=== PATIENT | female | born 1960 | race Caucasian/White ===

== ENCOUNTER 2020-06-06 18:08 | Emergency (ER) | payer OTHER, SELFPAY ==
[2020-06-06 18:22] VITALS: BP 132/78; PULSE 70; RESP 16; TEMP 36.8; O2SAT 98
--- NOTE | 2020-06-06 18:30 | ED.GENADULT ---
HPI - General Adult General Chief complaint: Ear Stated complaint: Build up wax Time Seen by Provider: 06/06/20 18:30 Source: patient Mode of arrival: ambulatory Limitations: no limitations History of Present Illness HPI narrative: 59-year-old female patient presents to the [facility] with complaints of decreased hearing to the right ear. Patient states she thinks she has some wax buildup. Patient states she has had some decreased hearing that is gotten progressively worse over the past 2 months. Patient states she has tried peroxide, Debrox drops and an cxzx-bno-ycnloow wax removal without any relief. Patient denies any fevers or pain. Denies any runny nose, coughing or sore throat. Related Data Allergies Allergy/AdvReac Type Severity Reaction Status Date / Time NKDA Allergy Unknown Uncoded 09/05/10 15:47 Review of Systems Review of Systems: Narrative: CONSTITUTIONAL: Denies fever, chills, or sweats. EYES: Denies visual changes, redness, or discharge. ENT: Denies rhinorrhea, congestion, sore throat, or otalgia. Positive decreased hearing to right ear CARDIOVASCULAR: Denies chest pain, palpitations, or edema. RESPIRATORY: Denies cough or dyspnea. GASTROINTESTINAL: Denies abdominal pain, nausea, vomiting, or diarrhea. GENITOURINARY: Denies dysuria or hematuria. SKIN: Denies rash or itching. MUSCULOSKELETAL: Denies back pain, joint pain, or myalgia. NEUROLOGIC: Denies headache, numbness, or weakness. PSYCHIATRIC: Denies anxiety or depression. PMFSH Social History Social History Smoking status: Never smoker Alcohol intake: current Comments At the time of my signature I agree with nursing past medical history, surgical, social, and family history. There is no relevant family history pertinent to the presenting complaint. Exam Narrative: Exam Narrative: GENERAL: Well-appearing, well-nourished, and in no acute distress. HEAD: Normocephalic, atraumatic. EYES: PERRLA and EOMI. ENT: Nares clear, no rhinorrhea or epistaxis. Mucous membranes moist. Patient has impacted cerumen to the right ear of the canal. Unable to visualize the TM. NECK: Supple. No lymphadenopathy CHEST: Clear to auscultation. No respiratory distress. HEART: Regular rate and rhythm. No murmur heard. Normal peripheral pulses. ABDOMEN: Soft, nontender, nondistended, normal active bowel sounds. EXTREMITIES: Normal range of motion. No edema. SKIN: Warm, dry, no rash. NEURO: No focal deficits. Alert and oriented x3. Course Vital Signs Vital signs: Vital Signs Temperature 36.8 C 06/06/20 18:22 Pulse Rate 70 06/06/20 18:22 Respiratory Rate 16 06/06/20 18:22 Blood Pressure 132/78 06/06/20 18:22 Pulse Oximetry 98 06/06/20 18:22 Temperature 36.8 C 06/06/20 18:22 Pulse Rate 70 06/06/20 18:22 Respiratory Rate 16 06/06/20 18:22 Blood Pressure 132/78 06/06/20 18:22 Pulse Oximetry 98 06/06/20 18:22 Vital signs reviewed. The patient has been informed that they may have pre-hypertension or Hypertension based on a BP reading in the department. I recommend that the patient call the primary care provider listed on their discharge instructions or a physician of their choice this week to arrange follow up for further evaluation of possible pre-hypertension or Hypertension Procedures Ear Wax Removal Right Ear: Ear Wax Removal Date: 06/06/20 Ear Wax Removal Time: 18:34 Cerumenolytic Used: 5-10% Sodium Bicarb solution Results: Re-examined: cerumen removed completely TM Examination: TM(s) intact, normal appearance Ear Canal Exam: atraumatic Patient Tolerated Procedure: well Complications: no problems Technique: ear canal irrigated and ear canal curetted Additional Comments: The patient had cerumen removed from the R ear canal with warm water and peroxide irrigation and a loop in order to visualize the TM. The TM has no
== END 2020-06-06 18:49 | disposition home or self-care (01) ==
PROVIDERS: Emergency Provider Nurse Practitioner Family; PCP Family Medicine
DX: H61.21 Impacted cerumen, right ear (principal); H66.91 Otitis media, unspecified, right ear
CPT/HCPCS: 69210; 99213; A9270; G0463

== ENCOUNTER 2021-01-17 09:46 | Outpatient (CLI) | payer OTHER, SELFPAY | END 2021-01-17 09:47 | disposition home or self-care (01) | LOC: ANHCOVIDVC 09:46 | PROVIDERS: PCP Family Medicine | DX: Z23 Encounter for immunization (principal) | CPT/HCPCS: 0001A; 91300 ==

== ENCOUNTER 2021-02-07 09:48 | Outpatient (CLI) | payer OTHER, SELFPAY | END 2021-02-07 09:49 | disposition home or self-care (01) | LOC: ANHCOVIDVC 09:48 | PROVIDERS: PCP Family Medicine | DX: Z23 Encounter for immunization (principal) | CPT/HCPCS: 0002A; 91300 ==

== ENCOUNTER 2021-11-15 08:36 | Outpatient (CLI) | payer OTHER, SELFPAY ==
--- NOTE | ~2021-11-15 | MM_ITS ---
EXAMINATION: MM screening bebe BI w carrie HISTORY: Screening mammogram TECHNIQUE: Craniocaudal and mediolateral oblique 3-D tomosynthesis images were obtained and synthetic 2-D images were generated. CAD analysis was submitted and interpreted. COMPARISON: 10/18/2019, 10/08/2018, 10/07/2017, 10/01/2016, 09/26/2015 bilateral screening mammogram e xaminations BREAST PARENCHYMAL COMPOSITION: There are scattered areas of fibroglandular density. FINDINGS: Stable mild fibroglandular asymmetry. There is no evidence of suspicious mass, calcificatio n, or architectural distortion to suggest malignancy in either breast. There has been no suspicious i nterval change. IMPRESSION: 1. No mammographic evidence of malignancy. 2. Recommend routine screening mammography in one year. BI-RADS Category 1: Negative Reviewed, dictated and finalized at location A. 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
--- NOTE | ~2021-11-15 | DEXA_ITS ---
Bone Density Report Name: GIA SHARPE Age: 61 Sex: Female Ethnicity: White Date of : 1960 Indication: osteopenia; postmenopausal Referring Provider: Baljinder, Paulette Mobley Study: Bone densitometry was performed. Exam Date: November 15, 2021 Accession number: [id number] Bone Density: Region BMD T-score Z-score Classification AP Spine (L1, L2) 0.816 -1.5 -0.1 Osteopenia Femoral Neck (Left) 0.646 -1.8 -0.5 Osteopenia Total Hip (Left) 0.812 -1.1 0.0 Osteopenia Total Hip Bilateral Avg 0.807 -1.2 -0.1 Osteopenia Femoral Neck (Right) 0.653 -1.8 -0.4 Osteopenia Total Hip (Right) 0.802 -1.2 -0.1 Osteopenia World Health Organization criteria for BMD impression classify patients as: Normal (T-score at or above -1.0), Osteopenia (T-score between -1.0 and -2.5), or Osteoporosis (T-score at or below -2.5). 10-year Fracture Risk(1): Major Osteoporotic Fracture 9.3% Hip Fracture 1.1% Reported Risk Factors: [place] (), Neck BMD=0.646, BMI=24.6 (1) FRAX(R) Version 3.08. Fracture probability calculated for an untreated patient. Fracture probability may be lower if the patient has received treatment. Previous Exams: Region Exam Age BMD T-score BMD Change BMD Change Date g/cm2 vs Baseline vs Previous AP Spine(L1, L2) 11/15/2021 61 0.816 -1.5 -0.162(-16.5%) 0.000(0.0%) 10/18/2019 59 0.816 -1.5 -0.162(-16.6%) -0.034(-4.0%)* 10/01/2016 56 0.850 -1.2 -0.128(-13.1%) -0.019(-2.2%) 09/21/2014 54 0.869 -1.0 -0.109(-11.1%) -0.004(-0.4%)# 08/31/2012 52 0.873 -1.0 -0.105(-10.8%) -0.105(-10.8%) 07/31/2010 50 0.978 0.0 Total Hip(Left) 11/15/2021 61 0.812 -1.1 -0.035(-4.1%)# 0.017(2.1%) 10/18/2019 59 0.795 -1.2 -0.052(-6.1%)# -0.027(-3.3%) 10/01/2016 56 0.822 -1.0 -0.025(-3.0%)# -0.011(-1.3%) 09/21/2014 54 0.833 -0.9 -0.014(-1.6%)# -0.015(-1.8%)# 08/31/2012 52 0.848 -0.8 0.002(0.2%)# 0.002(0.2%)# 07/31/2010 50 0.847 -0.8 Total Hip(Right) 11/15/2021 61 0.802 -1.2 -0.079(-8.9%)# 0.000(0.1%) 10/18/2019 59 0.801 -1.2 -0.079(-9.0%)# -0.060(-6.9%)* 10/01/2016 56 0.861 -0.7 -0.019(-2.2%)# 0.013(1.6%) 09/21/2014 54 0.848 -0.8 -0.033(-3.7%)# 0.007(0.9%)# 08/31/2012 52 0.840 -0.8 -0.040(-4.5%)# -0.040(-4.5%)# 07/31/2010 50 0.880 -0.5 *Denotes significance at 95% confidence level, LSC for AP Spine = 0.022 g/cm2, LSC for Total Hip = 0.027 g/cm2 Clinical Information Provided by Patient: Andrew
== END 2021-11-15 08:37 | disposition home or self-care (01) ==
LOC: ANHIMG 08:40
PROVIDERS: PCP Family Medicine; Visit Provider Nurse Practitioner Obstetrics & Gynecology
DX: Z12.31 Encounter for screening mammogram for malignant neoplasm of breast (principal); Z78.0 Asymptomatic menopausal state; M85.89 Other specified disorders of bone density and structure, multiple sites
CPT/HCPCS: 77063; 77067; 77080

== ENCOUNTER 2022-02-14 08:12 | Emergency (ER) | payer OTHER, SELFPAY ==
[2022-02-14 08:20] VITALS: BP 108/56; PULSE 70; RESP 16; TEMP 36.2; O2SAT 100
[2022-02-14 08:22] VITALS: BP 108/56; PULSE 70; RESP 16; TEMP 36.2; O2SAT 100
--- NOTE | 2022-02-14 08:22 | ED.EYEPROB ---
HPI - Eye Problem General Chief complaint: Eye Problems Stated complaint: Eye Pain Time Seen by Provider: 02/14/22 08:30 Source: patient Mode of arrival: ambulatory Limitations: no limitations History of Present Illness HPI Narrative: 61-year-old female presented for complaint of foreign body sensation to the left eye after dust and debris fell into the eye yesterday. She states she was wearing contacts at the time, but has started wearing her glasses. Since then she continues to feel like dust is still in the eye. It feels like it moves around. Denies redness, discharge, itching, or significant pain or vision changes. She has used 2 different leftover eyedrops for pinkeye. Related Data Allergies Allergy/AdvReac Type Severity Reaction Status Date / Time NKDA Allergy Unknown Other Uncoded 02/14/22 08:48 Review of Systems Review of Systems: CONSTITUTIONAL: Denies body aches, fever, chills EYES:Endorses FB sensation, Denies visual changes photophobia ENT: Denies rhinorrhea, congestion, sore throat, or otalgia. CARDIOVASCULAR: Denies chest pain, palpitations RESPIRATORY: Denies cough or dyspnea. GASTROINTESTINAL: Denies abdominal pain, nausea, vomiting, or diarrhea. SKIN: Denies rash, itching, or wounds. MUSCULOSKELETAL: Denies back pain, joint pain, or myalgia. NEUROLOGIC: Denies headache, numbness, tingling, or weakness. PSYCH: Denies depression or anxiety. All systems reviewed & are unremarkable except as noted in HPI and below PMFSH Social History Social History Smoking status: Never smoker Alcohol intake: current Comments At time of signature, I have reviewed and agree with nursing past medical, surgical, social and family history unless otherwise noted. Please see nursing chart for further information. There is no relevant family history pertinent to the presenting complaint Exam Narrative: GENERAL: Well-appearing HEAD: Normocephalic, atraumatic. EYES: No conjunctival injection, eye lid swelling/redness . EOMI. Lid eversion showed no evidence of trauma; left lateral corner of eye FB removed c/w dried eye discharge. fluorescein stain showed approx 3mm corneal abrasion at 6 o'clock to pupil ENT: Mucous membranes pink and moist. No rhinorrhea. TMs normal bilaterally. Throat normal. Uvula midline. NECK: Normal AROM. Supple. No lymphadenopathy. CHEST: No respiratory distress. Clear to auscultation. HEART: Regular rate and rhythm. No murmur appreciated. Normal peripheral pulses. ABDOMEN: Soft, nontender, nondistended MUSCULOSKELETAL: No bony tenderness. EXTREMITIES: Normal range of motion. SKIN: Warm, dry, no rash. Normal skin turgor. NEURO: No focal deficits. Alert and oriented x3. Steady gait PSYCH: Normal affect. Course Course Emergency Course: Patient is aware of diagnosis, understands and agrees to treatment plan. Anticipatory guidance given. Patient agrees to follow-up as directed and is aware of reasons to seek care at the emergency department. Portions of this record may have been created with voice recognition software Level of Care: Express Care Visit Vital Signs Vital signs: Vital Signs Temperature 97.2 F L 02/14/22 08:20 Pulse Rate 70 02/14/22 08:20 Respiratory Rate 16 02/14/22 08:20 Blood Pressure 108/56 L 02/14/22 08:20 Pulse Oximetry 100 02/14/22 08:20 Temperature 97.2 F L 02/14/22 08:22 Pulse Rate 70 02/14/22 08:22 Respiratory Rate 16 02/14/22 08:22 Blood Pressure 108/56 L 02/14/22 08:22 Pulse Oximetry 100 02/14/22 08:22 Procedures FB Removal Eye Foreign Body #1: Foreign Body Removal Date: 02/14/22 Location: eye (L) Topical anesthetic used: tetracaine Foreign body: other Evidence of corneal penetration: Yes Technique: eye wash bottle Patient tolerated procedure: well Foreign Body Removal Narrative: approx 3mm corneal abrasion to 6
== END 2022-02-14 09:07 | disposition home or self-care (01) ==
PROVIDERS: Emergency Provider Nurse Practitioner Family; PCP Family Medicine
DX: S05.02XA Injury of conjunctiva and corneal abrasion without foreign body, left eye, initial encounter (principal); X58.XXXA Exposure to other specified factors, initial encounter; T15.92XA Foreign body on external eye, part unspecified, left eye, initial encounter
CPT/HCPCS: 99213; A9270; G0463

== ENCOUNTER 2022-03-28 00:22 | Day surgery (SDC) | payer OTHER, SELFPAY ==
[2022-03-19 12:25] VITALS: BMI 23.4
[2022-03-28 07:33] VITALS: BP 108/54; PULSE 87; RESP 19; TEMP 36.6; O2SAT 100
[2022-03-28] MEDS: LACTATED RINGERS 1,000 ML 150 ML IV CONT (07:41)
--- NOTE | 2022-03-28 08:03 | WPDANESEPPF ---
Anes - Initial Pre Proc Eval Procedure: Operation Date: 03/28/22 08:45 Proposed Procedures p Screening Colonoscopy - Yoni Ocampo MD Date/Time: 03/28/22 08:03 Surgeon: Yoni Ocampo MD Pre Op Diagnosis: family hx of colon ca, hx of colon polyps Patient Data Age: 61 Gender: F Height: 1.7 m Weight: 87 kg Last Vital Signs Temp 36.6 C 03/28/22 07:33 Pulse 87 03/28/22 07:33 Resp 19 03/28/22 07:33 BP 108/54 L 03/28/22 07:33 Pulse Ox 100 03/28/22 07:33 Allergies Allergy/AdvReac Type Severity Reaction Status Date / Time NKDA Allergy Unknown Other Uncoded 03/28/22 07:30 Home Medications Medication Instructions Recorded Confirmed Type calcium carbonate-vitamin D3 200 tablet PO DAILY 03/19/22 03/28/22 History hq-wa-LW-vit C-[id number]-[id number]-coQ10 200 cap PO DAILY 03/19/22 03/28/22 History [Daily Multivitamin] Patient hx anesthesia problems: none Family hx anesthesia problems: none Results Review: All pre-operative results and documents have been reviewed as part of the pre-operative evaluation. COUNTS INCLUDE 234 BEDS AT THE [facility] Social History Social History Smoking status: Former smoker Tobacco type: cigarettes Alcohol intake: current Alcohol use details: one a week Substance use: never Substance use type: does not use Living arrangements: alone Spiritual care concerns: No Anes - Eval Final PreProcedure Day of Procedure 03/28/22 08:03 Patient weight: overweight Heart: regular rate and rhythm Lungs: clear to auscultation and normal air movement Airway: Mallampati scale class II Neurological: alert and oriented Last oral intake: >/= 8 hours ASA classification: II Emergent: no Anesthetic plan: proceed Anesthesia type and monitoring: general GIVS Results Review: All pre-operative results and documents have been reviewed as part of the pre-operative evaluation. Informed Consent: The patient's anesthetic plan and its attendant risks and benefits were discussed with the patient/family/POA. Questions were solicited and answers provided to the satisfaction of the patient/family/POA.
--- NOTE | 2022-03-28 08:35 | WPDGICN ---
Assessment and Plan Assessment and plan (1) History of colon polyps: Code(s): Z86.010 - Personal history of colonic polyps Status: Acute Assessment and Plan: Patient has a history of adenomatous colon polyps removed from the colon 2016. Plan is for surveillance colonoscopy now and at intervals in the future. (2) Family history of colonic polyps: Code(s): Z83.71 - Family history of colonic polyps Status: Acute Assessment and Plan: Patient's father has had colon cancer. For this reason surveillance colonoscopy is advised now on at 5 year intervals in the future. GI Consult Note Consult date/time: 03/28/22 08:35 HPI: Regina Conway is a 61 year old female Presents for screening colonoscopy. Patient's family history is significant that her father had colon cancer. Patient herself has had colon polyps on previous colonoscopy 2015. Patient reports that her current weight appetite and bowel movements are normal. She denies abdominal pain. She has had no bleeding. She presents today for surveillance colonoscopy. Review of Systems Review of Systems: All systems reviewed & are unremarkable except as noted in HPI and below PMFSH Social History Social History Smoking status: Former smoker Tobacco type: cigarettes Alcohol intake: current Alcohol use details: one a week Substance use: never Substance use type: does not use Living arrangements: alone Spiritual care concerns: No Meds Home Medications and Allergies Home Medications Medication Instructions Recorded Confirmed Type calcium carbonate-vitamin D3 200 tablet PO DAILY 03/19/22 03/28/22 History mz-tz-ZK-vit S-gbhwi-tgc-coQ10 200 cap PO DAILY 03/19/22 03/28/22 History [Daily Multivitamin] Allergies Allergy/AdvReac Type Severity Reaction Status Date / Time NKDA Allergy Unknown Other Uncoded 03/28/22 07:30 Vital Signs Vital Signs - 24 hr 03/28/22 07:33 Temperature 97.9 F Pulse Rate 87 Respiratory Rate 19 Blood Pressure 108/54 L Pulse Oximetry 100 Exam Narrative: Physical exam reveals patient to be alert. Vital signs stable. HEENT exam is unremarkable. Patient is anicteric. Lungs are clear to auscultation and percussion. Heart is without murmur or extra sounds. Abdominal exam bowel sounds are present soft nontender with no organomegaly. Digital external rectal exam is normal.
[2022-03-28] MEDS: SIMETHICONE ORAL SUSPENSION 20 MG/0.3 ML 30 ML BOTTLE 0.6 ML IRRIGATION (08:57)
[2022-03-28 09:05] VITALS: BP 88/48; PULSE 72; RESP 15; O2SAT 99
[2022-03-28 09:15] VITALS: BP 100/63; PULSE 81; RESP 20; O2SAT 99
[2022-03-28 09:25] VITALS: BP 108/57; PULSE 74; RESP 20; O2SAT 100
== END 2022-03-28 09:35 | disposition home or self-care (01) ==
PROVIDERS: PCP Family Medicine; Visit Provider Internal Medicine Gastroenterology
PROC: 0DJD8ZZ Inspection of Lower Intestinal Tract, Via Natural or Artificial Opening Endoscopic (ICD-10-PCS; CPT 45378; principal; 2022-03-28 08:45)
DX: Z12.11 Encounter for screening for malignant neoplasm of colon (principal); K64.8 Other hemorrhoids; Z87.891 Personal history of nicotine dependence
CPT/HCPCS: 45378; J2704; J7120

== ENCOUNTER 2022-06-19 13:09 | Emergency (ER) | payer OTHER, SELFPAY ==
--- NOTE | ~2022-06-19 | XR_ITS ---
XR foot LT 2V 06/19/2022 14:12 Indication: Foreign body Procedure: 4 views left foot Comparison: 06/19/2022 Findings: Linear foreign body position unchanged from prior examination allowing for differences of t echnique. There is soft tissue swelling. Hemostat device is identified overlying the plantar soft tis sues. No underlying fracture or traumatic malalignment. Impression: 1: Stable position to linear radiopaque foreign body in the plantar soft tissues. Reviewed, dictated and finalized at location A. Impression: 1: Stable position to linear radiopaque foreign body in the plantar soft tissue s.
--- NOTE | ~2022-06-19 | XR_ITS ---
XR foot LT min 3V 06/19/2022 13:23 Indication: Foreign body removal Procedure: 4 views left foot Comparison: No prior studies for comparison. Findings: There is a linear radiopaque foreign body in the plantar soft tissues tissues overlying the third metatarsal neck. Mild soft tissue swelling. No fracture or traumatic malalignment. Lisfranc kaleb int intact Impression: 1: Linear radiopaque foreign body of the plantar soft tissues overlying the third metatarsal neck. Reviewed, dictated and finalized at location A. Impression: 1: Linear radiopaque foreign body of the plantar soft tissues overlying the thi rd metatarsal neck.
--- NOTE | 2022-06-19 13:14 | ED.GENADULT ---
HPI - General Adult General Chief complaint: Wound/Laceration Stated complaint: FB L FOOT Time Seen by Provider: 06/19/22 13:17 Source: patient, RN notes reviewed and old records reviewed Mode of arrival: ambulatory Limitations: no limitations History of Present Illness HPI narrative: 61 year old female presents to [facility] care with complaints of foreign body in her left foot for since the . Patient states that she was hemming a dress and a sewing needle went into the carpet and she stepped on it and it went into her foot. She states she pulled onto the needle and it had broken off into her foot.Tetanus is up to date from 09/2018.Patient states that she tried to get needle out but was unsuccessful. Patient states that she has been wearing her tennis shoes and she has been able to walk on her foot. MD complaint: Needle in foot Onset (ago): day(s) (6) Location: left and lower extremity (ball of foot) Related Data Home Medications Medication Instructions Recorded Confirmed calcium carbonate 200 mg calcium 200 tablet PO DAILY 03/19/22 03/28/22 (500 mg)-vitamin D3 400 unit tablet zmfubtvi-srd-GD 200 mcg-vit K 100 200 cap PO DAILY 03/19/22 03/28/22 mcg-lycop 500 [id number] capsule (Daily Multivitamin) Allergies Allergy/AdvReac Type Severity Reaction Status Date / Time NKDA Allergy Unknown Other Uncoded 03/28/22 07:30 Review of Systems Review of Systems: CONSTITUTIONAL: Denies fever, chills, or sweats. EYES: Denies visual changes, redness, or discharge. ENT: Denies rhinorrhea, congestion, sore throat, or otalgia. CARDIOVASCULAR: Denies chest pain, palpitations, or edema. RESPIRATORY: Denies cough or dyspnea. GASTROINTESTINAL: Denies abdominal pain, nausea, vomiting, or diarrhea. GENITOURINARY: Denies dysuria or hematuria. SKIN: Denies rash or itching, discomfort to the ball of left foot from foreign body MUSCULOSKELETAL: Denies back pain, joint pain, or myalgia. NEUROLOGIC: Denies headache, numbness, or weakness. PSYCHIATRIC: Denies anxiety or depression. All systems reviewed & are unremarkable except as noted in HPI and below PMFSH Past Medical History Medical History (Updated 06/19/22 @ 16:13 by Regina Ceballos NP) Anemia FH: colon polyps Surgical History Surgical History (Updated 06/19/22 @ 15:26 by Regina Ceballos NP) H/O tubal ligation Social History Social History (Updated 06/19/22 @ 15:27 by Regina Ceballos NP) Smoking status: Former smoker Tobacco type: cigarettes Additional smoking assessment comments: was only occasional smoker Alcohol intake: current Alcohol use details: one a week Substance use: never Substance use type: does not use Spiritual care concerns: No Comments At time of signature, agree with nursing past medical, surgical, social and family history. There is no relevant family history pertinent to the presenting complaint Exam Narrative: GENERAL: Well-appearing, well-nourished, and in no acute distress. HEAD: Normocephalic, atraumatic. EYES: PERRLA and EOMI. ENT: Nares clear, no rhinorrhea or epistaxis. Mucous membranes moist.TM's normal with good light reflex, throat pink with no lesions or exudates or tonsil swelling. NECK: Supple.no lymphadenopathy CHEST: Clear to auscultation. No respiratory distress.SA2 100% on room air HEART: Regular rate and rhythm. No murmur heard. Normal peripheral pulses. ABDOMEN: Soft, nontender, nondistended, normal active bowel sounds. EXTREMITIES: Normal range of motion. No edema.Pain to the ball of her left foot from foreign body SKIN: Warm, dry, no rash. tenderness to ball of left foot with tiny puncture wound noted.Patient has strong pedal pulse and posterior tibial to left foot, patient has full mobility of left foot, denies any tingling or numbness of her left foot. NEURO: No focal deficits. Alert and oriented x3. Course Course Level of Care: Express Care Visit Vital Signs Vital signs: Vital Signs T
[2022-06-19 13:16] VITALS: BP 108/77; PULSE 86; RESP 16; TEMP 37; O2SAT 100
--- NOTE | 2022-06-19 15:22 | PC.NURSE ---
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 Many calls made to get follow-up, and patient sent to preparation supervisor in stabe condition. Guaze in place to foot.
== END 2022-06-19 15:26 | disposition other institution (70) ==
PROVIDERS: Emergency Provider Registered Nurse; PCP Family Medicine
DX: S91.342A Puncture wound with foreign body, left foot, initial encounter (principal); W27.3XXA Contact with needle (sewing), initial encounter; Z87.891 Personal history of nicotine dependence
CPT/HCPCS: 28192; 73620; 73630; 99213; G0463

== ENCOUNTER 2023-04-03 17:40 | Emergency (ER) | payer OTHER, SELFPAY ==
[2023-04-03 17:48] VITALS: BP 117/59; PULSE 71; RESP 18; TEMP 36.1; O2SAT 99
--- NOTE | 2023-04-03 18:13 | ED.SKABFB ---
HPI - Skin/Abscess/Foreign Bdy General Chief complaint: Skin/Abscess/Foreign Body Stated complaint: itchy rash on face legs and arms Source: patient and RN notes reviewed History of Present Illness HPI narrative: 62 yo F presents to urgent care with complaints of pruritic rash to her left face and bilateral arms. Pt states she was working in the yard this past Friday and Friday noticed the rash first on her left arm. Pt states the rash has now spread to her face and other arm. Pt has been using cortizone cream and calamine cream with no relief. Denies any fevers, chills, visual disturbance, vomiting, chest pain, or SOB. Related Data Home Medications Medication Instructions Recorded Confirmed calcium carbonate 200 mg calcium 200 tablet PO DAILY 03/19/22 03/28/22 (500 mg)-vitamin D3 400 unit tablet Allergies Allergy/AdvReac Type Severity Reaction Status Date / Time NKDA Allergy Unknown Other Uncoded 03/28/22 07:30 Review of Systems Review of Systems: Pertinent positives and pertinent negatives per HPI. [facility] Past Medical History Medical History (Updated 04/03/23 @ 18:14 by Salma Brush, ALANA) Anemia FH: colon polyps Surgical History Surgical History (Updated 06/19/22 @ 15:26 by Regina Ceballos NP) H/O tubal ligation Social History Social History (Updated 06/19/22 @ 15:27 by Regina Ceballos NP) Smoking status: Former smoker Tobacco type: cigarettes Additional smoking assessment comments: was only occasional smoker Alcohol intake: current Alcohol use details: one a week Substance use: never Substance use type: does not use Living arrangements: alone Spiritual care concerns: No Comments At the time of my signature, I reviewed and agree with the nursing past medical, surgical, social, and family history. There is no relevant family history pertinent to the patient complaint. Exam Narrative: GENERAL: This is a well-nourished, well-developed patient, in no apparent distress. HEAD: normocephalic, atraumatic. EYES: PERRL. Sclera clear/white. Vision is grossly intact. Rash extends to left outter orbit, does not involve inner canthus or inner orbit. EARS: External ears normal, auditory canals clear and without drainage, TMs normal without perforation. Hearing grossly intact. NOSE: External nose normal with no obvious nasal discharge, nares without redness, no rhinorrhea. THROAT: Mucous membranes moist, posterior pharynx clear. NECK: Neck supple, non-tender without lymphadenopathy, masses or thyromegaly. CARDIOVASCULAR: Regular rate and rhythm without murmurs, gallops, or rubs. RESPIRATORY: Clear to auscultation. Breath sounds equal bilaterally. No wheezes, rales, or rhonchi. SKIN: erythemic, blistery rash to the left side of face, left forearm, and right elbow. NEURO: awake, alert, and oriented to person, place and time. There were no obvious focal neurologic abnormalities. EXTREMITIES: No clubbing, cyanosis, or edema. No joint tenderness, effusion, or edema noted. BACK: Nontender without deformity or crepitance. No flank tenderness. Course Course Level of Care: Express Care Visit Vital Signs Vital signs: Vital Signs Temperature 97.0 F L 04/03/23 17:48 Pulse Rate 71 04/03/23 17:48 Respiratory Rate 18 04/03/23 17:48 Blood Pressure 117/59 L 04/03/23 17:48 Pulse Oximetry 99 04/03/23 17:48 Oxygen Delivery Room Air 04/03/23 17:48 Temperature 97.0 F L 04/03/23 17:48 Pulse Rate 71 04/03/23 17:48 Respiratory Rate 18 04/03/23 17:48 Blood Pressure 117/59 L 04/03/23 17:48 Pulse Oximetry 99 04/03/23 17:48 Oxygen Delivery Room Air 04/03/23 17:48 Reviewed MDM - Skin/Abscess/Foreign Bdy MDM Narrative Medical decision making narrative: Start taking the steroids as prescribed tomorrow morning. If you notice any new or worsening symptoms, go to the emergency department. Differential Diagnosis Differential diagnosis: Mariana
[2023-04-03] MEDS: predniSONE 20 MG TABLET 60 MG PO (18:22)
== END 2023-04-03 18:30 | disposition home or self-care (01) ==
PROVIDERS: Emergency Provider Nurse Practitioner Family; PCP Family Medicine
DX: L25.9 Unspecified contact dermatitis, unspecified cause (principal); Z87.891 Personal history of nicotine dependence
CPT/HCPCS: 99213; G0463; J7512

== ENCOUNTER 2023-05-01 08:36 | Outpatient (CLI) | payer OTHER, SELFPAY ==
--- NOTE | ~2023-05-01 | MM_ITS ---
EXAMINATION: MM screening [facility] BI w carrie HISTORY: Screening mammogram TECHNIQUE: Craniocaudal and mediolateral oblique 3-D tomosynthesis images were obtained and synthetic 2-D images were generated. CAD analysis was submitted and interpreted. COMPARISON: 11/15/2021, 10/18/2019, 10/08/2018 bilateral screening mammogram examinations BREAST PARENCHYMAL COMPOSITION: There are scattered areas of fibroglandular density. FINDINGS: There is no evidence of suspicious mass, calcification, or architectural distortion to sugg est malignancy in either breast. There has been no suspicious interval change. IMPRESSION: 1. No mammographic evidence of malignancy. 2. Recommend routine screening mammography in one year. BI-RADS Category 1: Negative Reviewed, dictated and finalized at location A.
== END 2023-05-01 08:37 | disposition home or self-care (01) ==
LOC: ANHIMG 08:38
PROVIDERS: PCP Family Medicine; Visit Provider Nurse Practitioner Obstetrics & Gynecology
DX: Z12.31 Encounter for screening mammogram for malignant neoplasm of breast (principal)
CPT/HCPCS: 77063; 77067

== ENCOUNTER → 2023-07-03 11:54 | Outpatient (CLI) | payer OTHER, SELFPAY ==
--- NOTE | ~2023-07-03 | XR_ITS ---
EXAMINATION: XR knee LT 3V DATE: 07/03/2023 12:45 INDICATION: Left knee pain TECHNIQUE: Three views of the left knee were obtained. COMPARISON: None. FINDINGS: Alignment is normal. No fracture or osteochondral lesion. There is mild tricompartmental os teoarthritis characterized by tiny marginal osteophytes. No joint effusion/synovitis. Soft tissues a re unremarkable. IMPRESSION: 1. Osteoarthritis without acute osseous abnormality. Reviewed, dictated and finalized at location A.
--- NOTE | ~2023-07-03 | XR_ITS ---
EXAMINATION: XR knee RT 3V DATE: 07/03/2023 12:45 INDICATION: Unspecified osteoarthritis, unspecified site TECHNIQUE: Three views of the right knee were obtained. COMPARISON: None. FINDINGS: Alignment is normal. No fracture or osteochondral lesion. There is mild tricompartmental os teoarthritis characterized by tiny marginal osteophytes. No joint effusion/synovitis. Soft tissues a re unremarkable. IMPRESSION: 1. Mild osteoarthritis without acute osseous abnormality. Reviewed, dictated and finalized at location A.
== END ==
PROVIDERS: PCP Family Medicine; Visit Provider Family Medicine
DX: M17.0 Bilateral primary osteoarthritis of knee (principal)
CPT/HCPCS: 73562

== ENCOUNTER 2024-05-19 08:40 | Outpatient (CLI) | payer OTHER, SELFPAY ==
--- NOTE | ~2024-05-19 | MM_ITS ---
EXAMINATION: MM screening [facility] BI w carrie HISTORY: Screening TECHNIQUE: Craniocaudal and mediolateral oblique 3-D tomosynthesis images were obtained and synthetic 2-D images were generated. CAD analysis was submitted and interpreted. COMPARISON: Comparison to multiple prior studies sequentially, with oldest reviewed study dated 09/11. BREAST PARENCHYMAL COMPOSITION: Not dense: There are scattered areas of fibroglandular density. FINDINGS: There are bilateral breast asymmetries which are stable. There is no evidence of suspicious mass, calcification, or architectural distortion to suggest malignancy in either breast. There has b een no suspicious interval change. IMPRESSION: 1. No mammographic evidence of malignancy. 2. Recommend routine screening mammography in one year. BI-RADS Category 1: Negative Reviewed, dictated and finalized at location B.
--- NOTE | ~2024-05-19 | DEXA_ITS ---
Bone Density Report Name: GIA SHARPE Age: 63 Sex: Female Ethnicity: White Date of : 1960 Indication: postmenopausal; screening for osteoporosis; height loss; Referring Provider: ESME, JAVY Mobley Study: Bone densitometry was performed. Exam Date: May 19, 2024 Accession number: [id number] Bone Density: Region BMD T-score Z-score Classification AP Spine(L1-L4) 1.009 -0.3 1.3 Normal Femoral Neck (Left) 0.649 -1.8 -0.3 Osteopenia Total Hip (Left) 0.821 -1.0 0.2 Normal Femoral Neck (Right) 0.615 -2.1 -0.7 Osteopenia Total Hip (Right) 0.860 -0.7 0.5 Normal Total Hip Mean 0.840 -0.9 0.4 Normal World Health Organization criteria for BMD impression classify patients as: Normal (T-score at or above -1.0), Osteopenia (T-score between -1.0 and -2.5), or Osteoporosis (T-score at or below -2.5). 10-year Fracture Risk(1): Major Osteoporotic Fracture 9.7% Hip Fracture 1.5% Reported Risk Factors: [place] (), Neck BMD=0.615, BMI=21.6 (1) FRAX(R) Version 3.08. Fracture probability calculated for an untreated patient. Fracture probability may be lower if the patient has received treatment. Clinical Information Provided by Patient: Has used the following medications: Vitamin D, Calcium Patient maximum height was 68 Menopause Age: 48 Drinks caffeinated beverages Onset of menses at age 14 Number of children 2 Impression: The patient has low bone mass, based on the Right Femoral Neck T-score. The patient has an estimated ten-year risk of hip fracture of 1.5% and an estimated ten-year risk of major fracture of 9.7%, based on the WHO FRAX algorithm. Discussion: BONE DENSITY IS LOW AT ONE OR MORE SKELETAL SITES. This patient's lowest T-score is low at one or more skeletal sites. It meets the World Health Organization's (WHO) criteria for ?low bone mass? (T-score between -1.0 and -2.5). The patient's 10-year risk of fracture as calculated by FRAX is less than the threshold where pharmacological therapy is recommended by the National Osteoporosis Foundation (NOF). However, all treatment decisions require clinical judgment and consideration of individual patient factors, including patient preferences, comorbidities, previous drug use, risk factors not captured in the FRAX model (e.g., frailty, falls, vitamin D deficiency, increased bone turnover, interval significant decline in bone density) and possible under or overestimation of fracture risk by FRAX. The patient should follow a healthful lifestyle (good nutrition with adequate calcium and vitamin D, and appropriate weight-bearing exercise). Follow-Up: Consider repeating this study in 2 to 3 years to reassess this patient's status, or sooner if there is some new clinical indication. Reported by: NURA on 05/19/2024 9:15:00
== END 2024-05-19 08:41 | disposition home or self-care (01) ==
LOC: ANHIMG 08:42
PROVIDERS: PCP Family Medicine; Visit Provider Nurse Practitioner Obstetrics & Gynecology
DX: Z12.31 Encounter for screening mammogram for malignant neoplasm of breast (principal); M85.89 Other specified disorders of bone density and structure, multiple sites
CPT/HCPCS: 77063; 77067; 77080

== ENCOUNTER 2025-07-15 08:37 | Outpatient (CLI) | payer MEDICARE, SELFPAY ==
--- NOTE | ~2025-07-15 | MM_ITS ---
EXAMINATION: MM screening [facility] BI w carrie HISTORY: Screening TECHNIQUE: Craniocaudal and mediolateral oblique 3-D tomosynthesis images were obtained and synthetic 2-D images were generated. CAD analysis was submitted and interpreted. COMPARISON: Mammogram 05/19/2024 and 05/01/2023 BREAST PARENCHYMAL COMPOSITION: There are scattered areas of fibroglandular density. FINDINGS: There is no evidence of suspicious mass, calcification, or architectural distortion to suggest malignancy. There has been no suspicious interval change. IMPRESSION: 1. No mammographic evidence of malignancy. Recommend routine screening mammography in one year. BI-RADS Category 2: Benign finding(s) Reviewed, dictated and finalized at location Q. IMPRESSION: 1. No mammographic evidence of malignancy. Recommend routine screening mammogra phy in one year. BI-RADS Category 2: Benign finding(s)
== END 2025-07-15 08:38 | disposition home or self-care (01) ==
LOC: ANHFOHIMG 08:40
PROVIDERS: PCP Family Medicine; Visit Provider Nurse Practitioner
DX: Z12.31 Encounter for screening mammogram for malignant neoplasm of breast (principal)
CPT/HCPCS: 77063; 77067